=== PATIENT | female | born 1940 | race Caucasian/White ===

== ENCOUNTER → 2020-09-01 14:35 | Outpatient (CLI) | payer MEDICARE, BC, SELFPAY ==
--- NOTE | 2020-09-01 | DI.RAD.S_ITS ---
PROCEDURE: XR SHOULDER LT MIN 2V INDICATIONS: Unknown Mass on left shoulder for 1 day TECHNIQUE: 3 views of the shoulder were acquired. COMPARISON: None. FINDINGS: Bones: No fractures or dislocations. No suspicious bony lesions. Visualized ribs appear intact. Mild joint narrowing with periarticular osteophyte formation. Fixation hardware involving the cervical thoracic spine incompletely visualized. Soft tissues: No suspicious soft tissue calcifications. IMPRESSION: Mild acromioclavicular and glenohumeral joint degeneration. Dictated by: Alex Real [facility] Interpreted: Jaquan Garcia MD on 09/01/2020 at 16:38 Approved by: Jaquan Garcia M.D. on 09/01/2020 at 17:14
--- NOTE | 2020-09-01 | DI.US.S_ITS ---
PROCEDURE: US PERIPH VENOUS LOW EXTREM LT INDICATIONS: EDEMA TECHNIQUE: Real-time imaging, as well as color and pulse Doppler interrogation, were performed of the lower extremity deep veins from the inguinal ligament to the popliteal fossa. COMPARISON: None. FINDINGS: The common femoral, femoral and popliteal veins are normally compressible, and free of intraluminal thrombus. Color and pulse Doppler demonstrate normal phasic intraluminal flow. There is normal augmentation response to distal compression maneuver. Moderate to severe superficial soft tissue edema can be seen involving the left lower extremity. IMPRESSION: Negative for deep venous thrombosis. Dictated by: Jesus Herman M.D. on 09/01/2020 at 15:08 Approved by: Jesus Herman M.D. on 09/01/2020 at 15:08
== END ==
PROVIDERS: Referring Provider Nurse Practitioner; Visit Provider Nurse Practitioner
DX: R60.9 Edema, unspecified (principal); R22.32 Localized swelling, mass and lump, left upper limb; M19.012 Primary osteoarthritis, left shoulder
CPT/HCPCS: 73030; 93971